=== PATIENT | female | born 1985 | race Hispanic/Latino ===

== ENCOUNTER 2016-11-08 10:26 | Emergency (ER) | payer OTHER ==
[~2016-11-08] VITALS: Ht 157.5 cm; Wt 86.4 kg
[~2016-11-08 10:26] MED LIST: FLUC150T48 PO; HYDR42CR3 TP
[2016-11-08 10:38] VITALS: BP 120/77; PULSE 88; RESP 18; O2SAT 99
--- NOTE | 2016-11-08 11:18 | ED.REPORT ---
HPI-Chest Pain Under 40 Date of Service Nov 08, 2016 ED Provider: Ai De La Cruz MD 31 year old female with a history of type 2 diabetes presents to the ER complaining of shortness of breath and chest pain onset yesterday. She also reports hyperglycemia today, with blood sugars in the 400's elevated from her typical 200. Associated symptom of chills. Yesterday she ate [employer] and then vomited later that day while in class. She also had a single episode of coughing up blood-tinged sputum this morning. Patient denies fever. Nursing Notes Stated Complaint: MIGRAINE/SOB Chief Complaint: Chest Pain-Non Cardiac Nature Nursing Notes Reviewed: Yes Allergies: Coded Allergies: No Known Allergies (Unverified , 08/30/15) Scheduled Fluconazole (Diflucan) 150 Mg Tablet 150 MG PO ONCE Hydrocortisone (Cortaid) 1 % Cream..g. 42 GM TP TID General Time Seen by MD: 11:03 Chief Complaint Shortness of breath Hx Obtained From: Patient Arrived By: Walk-in Sudden in Onset?: No Onset Occurred: Yesterday Symptom Duration: Since onset Location: : Substernal Quality: Painful, Pressure Severity: Current: Moderate Severity: Maximum: Moderate Context Related History: Reports: Diabetes mellitus Similar Sx Previous: No Past Medical History Past Medical History Headaches Reports: Diabetes mellitus Past Surgical History Reports: Smoking History Never Smoker Social History Alcohol Use: Denies alcohol use Drug Use: Denies drug use Ambulatory Status Independent Review of Systems Constitutional: Reports: Chills, Denies: Fever Respiratory: Reports: Prod cough, bloody (tinged), Shortness of breath Cardiovascular: Reports: Chest pain GI: Reports: Nausea, Vomiting, Denies: Abdominal pain, Bloody/tarry stool, Constipation, Diarrhea, Hematemesis, Hematochezia Neurologic: Reports: Headache Complete sys rev & neg: except as marked. Physical Exam Initial Vital Signs Vital Signs (First) Date Time Temp Pulse Resp B/P Pulse Ox O2 Delivery O2 Flow Rate FiO2 11/08/16 10:38 36.5 88 18 120/77 99 Room Air Initial VS: Reviewed Head / Eyes: Atraumatic, Normocephalic, PERRL Neck: Supple, Non-tender, Full range of motion Abdomen / GI: Soft, Non-tender, No guarding, No rebound, No distention Extremities: Vascular intact, Neuro intact, No swelling, No tenderness Skin: Warm, Dry, No cyanosis Neurologic: Alert, Oriented, Nonfocal Psychiatric: Mood/affect normal, Behavior normal, Normal thought content General/Constitutional: Awake, Alert, Well developed, Well nourished Respiratory / Chest: Breath sounds NL, Breath sounds = bilat, No respiratory distress, No rales, No rhonchi, No wheezing, No chest tenderness Cardiovascular: Heart rate NL, Regular rhythm, Heart sounds NL, No murmurs, Peripheral circulation NL, Pulses = bilaterally, No gross BP differential Interpretation & Diagnostics Lab Results Interpretation Result Diagram: 11/08/16 1115 11/08/16 1115 Test 11/08/16 11:15 White Blood Count 8.5th/mm3 (3.8-10.1) Red Blood Count 4.85mil/mm3 (3.90-5.20) Hemoglobin 13.0g/dL (12.0-15.6) Hematocrit 39.3% (35.0-46.0) Mean Corpuscular Volume 81.0fL (81-100) Mean Corpuscular Hemoglobin 26.8pg (27.0-35.0) Mean Corpuscular Hemoglobin Concent 33.1% (32.0-37.0) Red Cell Distribution Width 14.2% (12.3-15.4) Platelet Count 252bil/L (150-400) Neutrophils (%) (Auto) 72.4% (40-74) Lymphocytes (%) (Auto) 19.5% (14-46) Monocytes (%) (Auto) 7.2% (4-12) Eosinophils (%) (Auto) 0.6% (0-5) Basophils (%) (Auto) 0.1% (0-3) Sodium Level 135mEq/L (134-144) Potassium Level 3.8mEq/L (3.5-5.2) Chloride Level 98mEq/L (97-108) Carbon Dioxide Level 21mmol/L (18-29) Blood Urea Nitrogen 10mg/dL (6-20) Creatinine 0.53mg/dL (0.57-1.00) Estimat Glomerular Filtration Rate 194mL/min (>59) Glucose Level 331mg/dL (60-99) Lactic Acid Level 1.5mmol/L (0.4-2.0) Calcium Level 10.0mg/dL (8.5-10.1) Total Bilirubin 0.4mg/dL (0.0-1.2) Aspartate Amino Transf (AST/SGOT) 15U/L (0-50) Alanine Aminotransferase (ALT/SGPT) 32U/L (0-32) Alkaline Phosphatase 100U/L (25-150) Troponin T 0.010ug/L (0.0-0.011) Pro-B-Type Natriuretic Peptide 5.00pg/mL (0-130) Total Protein 8.5g/dL (6.4-8.4) Albumin 4.7g/dL (3.4-5.0) Procalcitonin 0.04ng/mL (0.00-0.08) ECG Interpretation Time: 11:38 Interpreted by: ED physician Normal ECG Interpretation: Normal rate, Normal sinus rhythm, No acute ischemic changes, Normal QRS, Normal axis, Normal intervals, No change from prior ECGs, Adequate tracing X-Ray Chest Interpretation Chest Xray Interpretation: IMPRESSION: No acute cardiopulmonary disease. Dictated by: Vanessa Bourgeois M.D. on 11/08/2016 at 11:36 Approved by: Vanessa Bourgeois M.D. on 11/08/2016 at 11:37 View: Portable, 1 view Interpretation / Wet Read by: Interpret - Radiologist Re-Eval/Medical Decision Source of Hx: Old records Re-Evaluation/Progress : Time of Eval: 14:48 Re-Evaluation/Progress Note: Discussed lab and imaging results and plan to discharge. Patient is amenable to the plan. Return precautions given. All other questions addressed. Counseled Regarding: Diagnosis, Lab results, Need for follow-up, When/why to return to ED Discharge & Departure Primary Impression: Viral syndrome Additional Impression: Hyperglycemia Disposition: Home Discharge Condition All VS Reviewed: Yes Condition: Stable Additional Instructions: Your workup today is reassuring. I do not believe that there is any immediately dangerous cause for your symptoms at this time. There is no indication of pneumonia on your x-ray. Continue your home medications as prescribed. If before dinner time your blood sugar is over 300, take an extra Glipizide. Take an extra Glipizide at night tonight and tomorrow. Return to the ER if you develop any worsening or concerning symptoms. Referrals: [place],Leobardo M DO (PCP) [place] Attestation Portions of this note were transcribed by Shannan Burrell. I, Dr. De La Cruz, personally performed the history, physical exam and medical decision-making; I reviewed and confirmed the accuracy of the information in the transcribed note. Signed by: Isabelle Coles, 11/08/2016 at 14:50 copies to: Leobardo Pierce Shawna L MD Nov 08, 2016 11:18 SHANNAN BURRELL Nov 08, 2016 11:19
[2016-11-08 11:33] LABS: BASOPHILS % (AUTO) 0.1 % (0-3); EOSINOPHILS % (AUTO) 0.6 % (0-5); MONOCYTES % (AUTO) 7.2 % (4-12); Mean Corpuscular Hemoglobin 26.8 pg (27.0-35.0); NEUTROPHILS % (AUTO) 72.4 % (40-74); Platelet Count 252 bil/L (150-400)
--- NOTE | 2016-11-08 11:39 | DRSVH ---
PROCEDURE: X-RAY CHEST ONE VIEW, PORTABLE ([id number]) INDICATIONS: cough, chest pain TECHNIQUE: One view of the chest was acquired. COMPARISON: None. FINDINGS: Surgical changes and devices: None. Lungs and pleura: No pleural effusions or pneumothorax. Lungs are clear. Mediastinum: Mediastinal contours appear normal. Heart size is normal. Bones and chest wall: No suspicious bony lesions. Overlying soft tissues appear unremarkable. IMPRESSION: No acute cardiopulmonary disease. Dictated by: Vanessa Bourgeois M.D. on 11/08/2016 at 11:36 Approved by: Vanessa Bourgeois M.D. on 11/08/2016 at 11:37
[2016-11-08 12:07] LABS: TROPONIN T 0.01 ug/L (0.0-0.011)
[2016-11-08 12:44] VITALS: BP 118/48; PULSE 97; RESP 20; O2SAT 100
[2016-11-08] MEDS ORDERED: 0.9% Sodium Chloride 1,000 ML IV ONE (13:00)
[2016-11-08 14:23] VITALS: BP 118/57; PULSE 91; RESP 18; O2SAT 99
[2016-11-08 15:24] VITALS: BP 116/54; PULSE 81; RESP 15; O2SAT 100
== END 2016-11-08 15:35 | disposition home or self-care (01) ==
LOC: SED 10:26
DX: B34.9 Viral infection, unspecified (principal); E11.65 Type 2 diabetes mellitus with hyperglycemia
CPT/HCPCS: 71010; 80053; 82948; 83605; 83880; 84145; 84484; 85025; 87040; 93005; 96360; 99285; J7030

== ENCOUNTER 2017-03-29 18:35 | Emergency (ER) | payer OTHER ==
[~2017-03-29] VITALS: Ht 157.5 cm; Wt 82.3 kg
[2017-03-29 18:43] VITALS: BP 112/78; PULSE 93; RESP 18; O2SAT 99
--- NOTE | 2017-03-29 20:15 | ED.REPORT ---
HPI-General Illness Date of Service Mar 29, 2017 ED Provider: Gera Beavers DO Pt is a 32 year old female with a history of type II DM who presents to the ED complaining of an elevated glucose level (465) at home today. She c/o associated cough, diarrhea, dysuria with burning sensation, back pain, and fever onset 2 days ago. She denies vomiting. Pt reports that she uses Metformin. Per pt, she did not eat anything that caused her elevated glucose level. Nursing Notes Stated Complaint: SUGAR IS HIGH,FEVER FOR 2 DAYS Chief Complaint: General Complaint Nursing Notes Reviewed: Yes Allergies: Coded Allergies: No Known Allergies (Unverified , 08/30/15) Scheduled Fluconazole (Diflucan) 150 Mg Tablet 150 MG PO ONCE Hydrocortisone (Cortaid) 1 % Cream..g. 42 GM TP TID General Time Seen by MD: 20:15 Chief Complaint Other (Elevated blood glucose) Hx Obtained From: Patient Arrived By: Walk-in Sudden in Onset?: No Onset Occurred: Just prior to arrival Symptom Duration: Duration unknown Location: : Back Quality: Painful Radiation: : Does not radiate Severity: Current: Moderate Severity: Maximum: Moderate Recent Healthcare: No recent doctor visit, No recent hospitalization Similar Sx Previous: No Past Medical History Past Medical History Headaches Reports: Diabetes mellitus (type II) Past Surgical History Reports: (x3) Smoking History Former Smoker (2005) Social History Alcohol Use: Denies alcohol use Drug Use: Denies drug use Ambulatory Status Independent Review of Systems + elevated glucose level Full Review of Systems Constitutional: Reports: Fever Respiratory: Reports: Non-productive cough GI: Reports: Diarrhea, Denies: Vomiting Female: Reports: Dysuria Musculoskeletal: Reports: Back pain Complete sys rev & neg: except as marked. Physical Exam Vital Signs Vital Signs Date Time Temp Pulse Resp B/P Pulse Ox O2 Delivery O2 Flow Rate FiO2 03/30/17 00:20 76 20 105/62 98 Room Air 03/29/17 22:59 36.8 79 18 105/61 98 Room Air 03/29/17 18:43 37.0 93 18 112/78 99 Room Air Initial VS: Reviewed Head / Eyes: Atraumatic, Normocephalic Neck: Supple, Full range of motion Respiratory: Breath sounds normal, Clear to auscultation, No respiratory distress Cardiovascular: Regular rate & rhythm, Heart sounds normal, Intact distal pulses Abdomen / GI: Soft, Non-tender Extremities: Vascular intact, Neuro intact Skin: Warm, Dry, No cyanosis Neurologic: Alert, Oriented, Nonfocal Psychiatric: Mood/affect normal, Behavior normal General/Constitutional: Awake, Alert Back: Full range of motion Right sided CVA tenderness Interpretation & Diagnostics Lab Results Interpretation Result Diagram: 03/29/17195103/29/171951 Test 03/29/17 19:52 03/29/17 20:14 03/29/17 21:10 White Blood Count 6.4th/mm3 (3.8-10.1) Red Blood Count 4.53mil/mm3 (3.90-5.20) Hemoglobin 12.5g/dL (12.0-15.6) Hematocrit 37.0% (35.0-46.0) Mean Corpuscular Volume 81.7fL (81-100) Mean Corpuscular Hemoglobin 27.6pg (27.0-35.0) Mean Corpuscular Hemoglobin Concent 33.8% (32.0-37.0) Red Cell Distribution Width 14.5% (12.3-15.4) Platelet Count 236bil/L (150-400) Neutrophils (%) (Auto) 63.8% (40-74) Lymphocytes (%) (Auto) 25.7% (14-46) Monocytes (%) (Auto) 8.1% (4-12) Eosinophils (%) (Auto) 1.9% (0-5) Basophils (%) (Auto) 0.2% (0-3) Hold Purple Top Tube Received (Received) Hold Blue Top Tube Received (Received) Sodium Level 132mEq/L (134-144) Potassium Level 3.8mEq/L (3.5-5.2) Chloride Level 95mEq/L (97-108) Carbon Dioxide Level 21mmol/L (18-29) Blood Urea Nitrogen 8mg/dL (6-20) Creatinine 0.51mg/dL (0.57-1.00) Estimat Glomerular Filtration Rate 201mL/min (>59) Glucose Level 372mg/dL (60-99) Calcium Level 8.7mg/dL (8.5-10.1) Total Bilirubin 0.2mg/dL (0.0-1.2) Aspartate Amino Transf (AST/SGOT) 35U/L (0-50) Alanine Aminotransferase (ALT/SGPT) 60U/L (0-32) Alkaline Phosphatase 96U/L (25-150) Total Protein 7.4g/dL (6.4-8.4) Albumin 4.0g/dL (3.4-5.0) Hold [place] Top Tube Received (Received) Hold [place]brahim Top Tube Received (Received) Ketones Negative (Negative) Hold Urine Received (Received) Urine Color Yellow (YELLOW) Urine Appearance Slightly cloudy Urine pH 5.5 (5.0-8.0) Urine Specific [place] 1.010 (1.003-1.035) Urine Protein Negativemg/dL (NEG,TRACE) Urine Glucose (UA) 1000mg/dL (NEGATIVE) Urine Ketones Negativemg/dL (NEGATIVE) Urine Occult Blood Trace (NEGATIVE) Urine Nitrite Negative (NEGATIVE) Urine Bilirubin Negative (NEGATIVE) Urine Urobilinogen Normalmg/dL (NORMAL) Urine Leukocyte Esterase Trace (NEGATIVE) Urine RBC 0-2/hpf (0-2) Urine WBC 6-10/hpf (0-5) Urine Epithelial Cells Moderate/hpf (NONE-MOD) Urine Crystals None seen (NONE SEEN) Urine Bacteria Few/hpf (NONE-FEW) Urine Hyaline Casts None/lpf (NONE) Urine Granular Casts None seen (NONE SEEN) Urine Waxy Casts None seen (NONE SEEN) Urine Red Blood Cell Casts None seen (NONE SEEN) Urine White Blood Cell Casts None seen (NONE SEEN) Urine Mucus None seen (None Seen) Urine Trichomonas None seen (NONE SEEN) Urine Yeast Few (NONE SEEN) Urinalysis Comment None Urine Culture Reflexed Indicated X-Ray Chest Interpretation Chest Xray Interpretation: Negative View: Portable, 1 view Interpretation / Wet Read by: Wet read ED physician Re-Eval/Medical Decision Med Decision/Clinical Course Hyperglycemia associated with diarrhea, fever chills and dysuria. UTI most likely identified. Laboratory work otherwise reassuring. Blood sugar came down with hydration. Diabetic ketoacidosis was ruled out. Pneumonia ruled out. No signs of sepsis. Course of Keflex and have her follow her diabetic diet and maintain her metformin. Source of Hx: Old records Time of Eval: 00:09 Re-Evaluation/Progress Note: Pt rechecked. Informed pt of plan for discharge. Pt understands and agrees with plan for discharge. F/U instructions and RTER warnings given. All questions addressed. 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 No signs of diabetic ketoacidosis. You have urinary tract infection. Take Keflex 4x daily for 5 days. Continue taking your Metformin. Continue with your diabetic diet. Call your primary care provider on Friday for a urine culture at a follow up appointment next week. Return to the Emergency Department for any new or worrisome symptoms. Referrals: Leobardo Pierce DO (PCP) [place] Attestation Portions of this note were transcribed by France Kowalski. I, Dr. Beavers personally performed the history, physical exam and medical decision-making; I reviewed and confirmed the accuracy of the information in the transcribed note. Signed by : Isabelle Mayers, 03/29/17. copies to: Leobardo Pierce Todd P DO Mar 29, 2017 20:15 France Rutledge Mar 29, 2017 20:31
[2017-03-29 20:41] LABS: BASOPHILS % (AUTO) 0.2 % (0-3); EOSINOPHILS % (AUTO) 1.9 % (0-5); MONOCYTES % (AUTO) 8.1 % (4-12); Mean Corpuscular Hemoglobin 27.6 pg (27.0-35.0); Mean Corpuscular Volume 81.7 fL (81-100); NEUTROPHILS % (AUTO) 63.8 % (40-74); Platelet Count 236 bil/L (150-400)
[2017-03-29] MEDS ORDERED: 0.9% Sodium Chloride 1,000 ML IV SCH (20:50)
[2017-03-29 21:58] LABS: APPEARANCE,URINE SLIGHTLY CLOUDY (CLEAR,HAZY); COLOR,URINE YELLOW (YELLOW); OCCULT BLOOD,URINE TRACE (NEGATIVE); PH,URINE 5.5 (5.0-8.0); UROBILINOGEN,URINE NORMAL (NORMAL)
[2017-03-29 21:59] LABS: YEAST,URINE FEW (NONE SEEN)
[2017-03-29] MEDS ORDERED: cefTRIAXone Inj 2,000 MG in Dextrose 5% Minibag Plus 50 ML IV ONE (22:05)
[2017-03-29 22:59] VITALS: BP 105/61; PULSE 79; RESP 18; O2SAT 98
[2017-03-30 00:20] VITALS: BP 105/62; PULSE 76; RESP 20; O2SAT 98
[2017-03-30] MEDS ORDERED: Sodium Chloride LOK Flush 10 mL Syringe IVFLUSH SCH (00:30)
--- NOTE | 2017-03-30 12:26 | DRSVH ---
PROCEDURE: X-RAY CHEST, TWO VIEWS ([id number]) INDICATIONS: cough TECHNIQUE: 2 views of the chest were acquired. COMPARISON: None. FINDINGS: Surgical changes and devices: None. Lungs and pleura: No pleural effusions or pneumothorax. Lungs are clear. Mediastinum: Mediastinal contours are normal. Heart size is normal. Bones and chest wall: No suspicious bony abnormalities. Soft tissues appear unremarkable. IMPRESSION: 1. No acute cardiopulmonary disease. Dictated by: Julius Kaiser M.D. on 03/30/2017 at 12:25 Approved by: Julius Kaiser M.D. on 03/30/2017 at 12:25
== END 2017-03-30 00:21 | disposition home or self-care (01) ==
LOC: SED 18:35
DX: E11.65 Type 2 diabetes mellitus with hyperglycemia (principal); N39.0 Urinary tract infection, site not specified; R05 Cough; Z79.84 Long term (current) use of oral hypoglycemic drugs; Z87.891 Personal history of nicotine dependence
CPT/HCPCS: 36415; 71020; 80053; 81000; 81025; 82009; 82948; 85025; 87077; 87086; 87088; 87147; 87804; 87880; 96361; 96365; 99285; J0696; J7030